=== PATIENT | male | born 2000 | race Caucasian/White ===

== ENCOUNTER 2023-10-17 12:55 | Outpatient (CLI) | payer OTHER, BC, SELFPAY | END 2023-10-17 12:56 | disposition home or self-care (01) | LOC: AMB 11-05 22:24 | PROVIDERS: Visit Provider Family Medicine | DX: S39.92XA Unspecified injury of lower back, initial encounter (principal); V09.9XXA Pedestrian injured in unspecified transport accident, initial encounter; Y92.410 Unspecified street and highway as the place of occurrence of the external cause; Y93.55 Activity, bike riding | CPT/HCPCS: A0998 ==

== ENCOUNTER 2023-10-18 10:35 | Emergency (ER) | payer BC, OTHER, SELFPAY ==
[2023-10-18 10:44] VITALS: BP 129/80; PULSE 63; RESP 18; TEMP 36.7; O2SAT 97; BMI 34.0
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
== END 2023-10-18 13:02 | disposition home or self-care (01) ==
LOC: ED 12:32
PROVIDERS: Emergency Provider Student in an Organized Health Care Education/Training Program
DX: M54.50 Low back pain, unspecified (principal); V13.4XXA Pedal cycle driver injured in collision with car, pick-up truck or van in traffic accident, initial encounter
CPT/HCPCS: 72040; 72100; 72220; 73080; 99282; 99283